=== PATIENT | male | born 1985 | race Caucasian/White ===

== ENCOUNTER → 2023-12-07 | Outpatient (CLI) | payer MEDICAID ==
--- NOTE | 2023-12-07 14:34 | CT ---
EXAMINATION TYPE: CT brain wo/w con DATE OF EXAM: 12/07/2023 COMPARISON: NONE CLINICAL INDICATION: Male, 38 years old with history of Z86.69 PERSONAL HISTORY OF DIS OF THE NERVOUS SYS; Technique: Multiple axial images are obtained from the skull base to vertex before and after the unev entful administration of nonionic IV contrast material. FINDINGS: The ventricles, basal cisterns and sulci over convexities are within normal limits and there is no ma ss effect or shift of the midline structures. No abnormal density is seen throughout the brain parenchyma and there is no acute intra or extra-axia l hemorrhage. Following contrast administration, there is no pathological enhancement throughout the brain parenchy ma. The posterior fossa including the brainstem, fourth ventricle and cerebellopontine angles are grossly normal. The intraorbital contents appear normal symmetric. There are mild chronic inflammatory changes in the ethmoid sinuses and left maxillary sinus. IMPRESSION: 1. No acute bleed or mass effect. 2. No pathological enhancement throughout the brain parenchyma. 3. Chronic inflammatory changes within the paranasal sinuses as described above.
== END | disposition home or self-care (01) ==
LOC: RADCTMAIN 13:19
PROVIDERS: ATTEND Family Medicine
DX: J34.89 Other specified disorders of nose and nasal sinuses (principal); Z86.69 Personal history of other diseases of the nervous system and sense organs
CPT/HCPCS: 85652; 86141; 70470; 36415; Q9967